=== PATIENT | female | born 1990 | race African-American/Black ===

== ENCOUNTER 2022-02-26 15:14 | Emergency (ER) | payer SELFPAY ==
[2022-02-26 15:58] VITALS: BP 115/72; PULSE 95; RESP 20; TEMP 98.3; BMI 25.0
== END 2022-02-26 17:33 | disposition home or self-care (01) ==
LOC: JER 15:14
DX: R07.9 Chest pain, unspecified (principal); Z20.822 Contact with and (suspected) exposure to COVID-19
CPT/HCPCS: 0241U-QW; 71046-TC-FY; 93005; 93010; 99285-25